=== PATIENT | male | born 1965 | race Caucasian/White ===

== ENCOUNTER 2017-02-08 21:31 | Inpatient (IN) | payer BC, OTHER ==
[~2017-02-08] VITALS: Ht 177.8 cm; Wt 81.0 kg
[~2017-02-08 21:31] MED LIST: NAPR1TAB9 PO
[2017-02-08] MEDS ORDERED: ASPIRIN 324 MG CHEW ONE (21:35)
[2017-02-08] MEDS ORDERED: HEPARIN SOD (PORCINE) 1000 UNIT/ML 10 ML VIAL ONE (21:40)
[2017-02-08] MEDS ORDERED: NiCARDipine HCL INJ 2.5 MG/ML 10 ML AMP ONE (21:40)
[2017-02-08] MEDS ORDERED: FENTANYL CITRATE INJ 50 MCG/1 ML 2 ML VIAL ONE ×2 (21:41→22:35)
[2017-02-08] MEDS ORDERED: NITROGLYCERIN/D5W 100MCG/ML 20ML SYR ONE (21:41)
[2017-02-08] MEDS ORDERED: MIDAZOLAM HCL 1 MG/ML 2ML VIAL ONE ×2 (21:41→22:35)
[2017-02-08 21:43] LABS: BASO % 0.4 %; BASO ABS # 0.05 K/uL (0-0.2); COMPLETE YES; EOS % 0.9 %; HEMATOCRIT 44.7 % (42-52); IG% 0.2 %; LYMPH % 15.9 %; MEAN CELL VOLUME 88.2 fL (80-100); MEAN CORPUSCULAR HEMOGLOBIN 30.8 pg (25-34); MEAN CORPUSCULAR HGB CONC 34.9 g/dl (32-36); MEAN PLATELET VOLUME 10.7 fL (7.4-10.4); MONO % 7.6 %; PLATELET COUNT 198 K/uL (130-400); RED BLOOD COUNT 5.07 M/uL (4.7-6.1); WHITE BLOOD COUNT 12.55 K/uL (4.8-10.8)
--- NOTE | 2017-02-08 21:49 | Procedure Note ---
Pre-Mod Sedation Assessment General Date of Moderate Sedation: Feb 08, 2017. Vital Signs: Vital Signs Past 12 Hours Date Time Temp Pulse Resp B/P (MAP) Pulse Ox O2 Delivery O2 Flow Rate FiO2 02/08/17 21:42 51 02/08/17 21:37 37.1 52 22 132/83 96 Room Air 02/08/17 21:37 96 Room Air Review Cardiovascular: regular rate, rhythm, no edema Abdomen: normal bowel sounds, non tender Lungs: chest non-tender, lungs clear Pre-Sedation Airway Assessment Oral Cavity: WNL Able to Visualize Vocal Cords: No Short Thick Neck: No Hx of Sleep Apnea: No Smoking Status: Current Every Day Smoker Mallampati Classification: Class III ASA Classification: Class III Procedure Planning Contraindications-for Mod Sed: None Yes Notes The planned sedation has been discussed with the patient and consent obtained. I have identified the patient, determined the appropriateness of sedation and have assessed the patient immediately prior to the procedure. All medicine(s) and interventions are by my order.
[2017-02-08] MEDS ORDERED: TICAGRELOR 90 MG TAB PO ONE (21:51)
--- NOTE | 2017-02-08 21:53 | DIAGNOSTIC IMAGING REPORT ---
CHEST ONE VIEW PORTABLE CLINICAL HISTORY: Cardiogenic chest pain COMPARISON STUDY: No previous studies for comparison. FINDINGS: The heart is at the upper limits of normal in size. There is no failure. There is no focal pulmonary consolidation. There are no pleural effusions.[ IMPRESSION: No active disease in the chest. Electronically signed by: Karri Lópze M.D. 02/08/2017 9:51 PM Dictated Date/Time: 02/08/2017 9:51 PM
[2017-02-08 21:54] LABS: INR 1.1 (0.9-1.1); PARTIAL THROMBOPLASTIN RATIO 1.1; PROTHROMBIN TIME (PATIENT) 11.5 SECONDS (9.0-12.0)
[2017-02-08] MEDS ORDERED: ONDANSETRON INJ 2 MG/ML 2 ML VIAL ONE (21:59)
[2017-02-08 22:01] LABS: ALT/SGPT 24 U/L (12-78); BLOOD UREA NITROGEN 11 mg/dl (7-18); BUN/CREATININE RATIO 10.2 (10-20); CARBON DIOXIDE 20 mmol/L (21-32); CHLORIDE 106 mmol/L (98-107); GLUCOSE 129 mg/dl (70-99); MAGNESIUM 1.9 mg/dl (1.8-2.4); POTASSIUM 3.2 mmol/L (3.5-5.1); SODIUM 137 mmol/L (136-145)
[2017-02-08 22:04] LABS: ALKALINE PHOSPHATASE 62 U/L (45-117); AST/SGOT 18 U/L (15-37); CKMB/CK RATIO 1.3 (0-3.0)
[2017-02-08] MEDS ORDERED: EPTIFIBATIDE 0.75 MG/ML 75MG VIAL IV ONE (22:39)
[2017-02-08] MEDS ORDERED: EPTIFIBATIDE 2 MG/ML 10 ML VIAL IV ONE (22:39)
[2017-02-08] MEDS ORDERED: ATROPINE SULFATE 0.1 MG/ML 10 ML SYR ONE (23:00)
--- NOTE | 2017-02-08 23:29 | Procedure Note ---
Post-Mod Sedation Assessment General Date of Moderate Sedation Feb 08, 2017. Vital Signs: Vital Signs Past 12 Hours Date Time Temp Pulse Resp B/P (MAP) Pulse Ox O2 Delivery O2 Flow Rate FiO2 02/08/17 21:42 51 02/08/17 21:37 37.1 52 22 132/83 96 Room Air 02/08/17 21:37 96 Room Air Review - Discharge Criteria Vital Signs Stable: Yes Alert/Oriented/Conversant: Yes Returned to Baseline Mental St: Yes Nausea Absent/Minimal: Yes Pain/Discomfort/Absent/Minimal: Yes Normal/Baseline Respirations: Yes Active Bleeding?: No Pt Received D/C Instructions: N/A Prescriptions Given: None Specific Proced. D/C Criteria Distal Pulses Present (Cardiac: Yes Groin site assessed-Card Cath: N/A Voided Prior To Discharge: N/A Discharged Patients Adult Escort/Transportation: Yes
[2017-02-08] MEDS ORDERED: ATROPINE SULFATE 0.1 MG/ML 5ML SYR IV PRN (23:30)
[2017-02-08] MEDS ORDERED: NITROGLYCERIN 0.4 MG SL PER TAB CHARGE SL PRN (23:30)
[2017-02-08] MEDS ORDERED: EPTIFIBATIDE BOLUS / DRIP IV ONE (23:30)
[2017-02-08] MEDS ORDERED: ACETAMINOPHEN 325 MG TAB PO PRN (23:30)
[2017-02-08] MEDS ORDERED: SODIUM CHLORIDE 0.9% 1000ML 1,000 ML IV SCH (23:30)
[2017-02-08] MEDS ORDERED: ONDANSETRON INJ 2 MG/ML 2 ML VIAL IV PRN (23:30)
[2017-02-08] MEDS ORDERED: MoRPHine SULFATE 2 MG/ML CARP IV PRN (23:30)
[2017-02-08 23:40] VITALS: BP 144/83; PULSE 66; TEMP 36.6; O2SAT 96; Ht 177.8 cm; Wt 81.0 kg
[2017-02-08 23:45] VITALS: BP 102/78; PULSE 63; TEMP 36.6; O2SAT 95
--- NOTE | 2017-02-08 23:52 | Cardiac Catheterization ---
Procedure Note Procedure Date Feb 08, 2017. Pre-Procedure Diagnosis STEMI AUC Score 9 Post-Procedure Diagnosis Severe CAD, Successful PCI, Normal Intracardiac Pressures Procedure(s) Performed Coronary Angiography, Left Heart Cath, Drug Eluting Stent Gastroenterology Technician Atul Dressmaker Garment Fitter(s) Alta Estimated Blood Loss 20 Medication(s) Fentanyl, Heparin, Nitroglycerin, Versed, Lidocaine 1% Ticagrelor Summary of Findings Indication: STEMI/Heart Alert Access: 6Fr Right Radial Artery Catheters: Hampton, JL3.5, Pigtail; JR4 guide, AR1 guide Findings: LM - Angiographically normal LAD - Moderate caliber vessel, 20% proximal disease, 30-40% stenosis early-mid segment after 1st septal, mild diffuse distal disease with vessel tapering as wraps around apex. On initial images some left to right collaterals to PDA Circumflex - Moderate caliber vessel, luminal irregularities; gives off 2 moderate caliber OMs without significant disease. RCA - Dominant, large caliber vessel, occluded proximally. Post intervention 30 % distal stenosis, luminal irregularities in PDA, small distal PLBs. LVEDP - 18 -- PCI -- Antithrombotic therapy: Heparin, Ticagrelor, Integrilin Procedure: Sinus bradycardia to 30s treated with atropine. Throughout case intermittent AIVR, hemodynamically stable. RCA cannulated with JR4 with poor guide support, and switched for AR1 Elastic Attacher Overlock 50 wire passed across lesion into distal vessel Long proximal to mid RCA lesion predilated with 2.0 and 3.0 compliant balloons Dilated lesion stented with 3.5 x 38 Resolute LADI Stent post-dilated with 4.0 noncompliant balloon IC vasodilators administered for spasm Some residual thrombus noted in mid stent after ballooning. Received IV/IC integrilin and started on infusion. Post procedure CAMDEN 3 flow, stent well expanded with minimal residual stenosis and no evidence of dissection. Arterial Closure: TR Band Summary: 1. Inferior STEMI/Occluded Proximal RCA - Likely acute on chronic severe disease with left to right collaterals noted pre-intervention. 2. Normal intracardiac filling pressure 3. Successful PCI of proximal to mid RCA with 3.5 x 38 Resolute LADI (post- dilated to 4.0). Recommendations: Admit to ICU for continued monitoring Loaded with Ticagrelor 180 mg in senior cytogenetics laboratory director Started on integrilin infusion --> continue for 12 hours Continue dual-antiplatelet therapy for 1 year Trend troponins until peak, Check Echo Start MENDY in AM. In the setting of bradycardia hold on beta-andre initially. start later in hospitalization as able High-dose statin Consult cardiac Rehab Hemodynamics Rest Ao: 139/67/93 Final Ao: 134/79/104 LV: 129/18 Recommendations PCI without planned CABG Specimens None Radiation Exposure (mGy) 3158 Contrast (mls) 180 Fluids (cc crystalloids) 125 Drains None Anesthesia Moderate Procedural Complication(s) None Disposition ICU ACC Data Cardiac Status Clinical evaluation leading to the procedure CAD Presntation: STEMI STEMI or Non-STEMI: Symptom Onset Date/Time: 02/08/2017 20:00 Thrombolytics: No Anginal Classification: CCS IV Heart Failure: No, NYHA Class: CCS I Cardiogenic Shock w/in 24Hrs: No Cardiac Arrest w/in 24Hrs: No Imaging studies past 6 months: No Stress studies past 6 months: No Coronary Anatomy Dominant: Right Left Main (% Stenosis): Normal LAD (% Stenosis): Proximal (20), Mid (30-40) Circumflex (% Stenosis): Normal OM1 (% Stenosis): Normal OM2 (% Stenosis): Normal RCA (% Stenosis): Proximal (100), Distal (30) R PDA (% Stenosis): Normal R PL1 (% Stenosis): Normal Left Ventricular Angiography EF (%): 45 Wall Motion: Inferior (Hypokinetic) Mitral Regurgitation: None Diagnostic Physician's Name: Shree Pollard MD Closure Device Percutaneous Entry Location: Radial Closure Device: Radial Band Recommendations: PCI without planned CABG PCI Indication: Immediate PCI for STEMI Reason For Delay in PCI: Difficulty crossing culprit lesion (organized occlusion more consistent with acute on chronic diseasse) Lesion Segment Name: Proximal RCA Culprit Artery: Yes Stenosis Prior to Rx (%): 100 Chronic Total Occlusion: No IVUS: No FFR: No Pre-Procedure CAMDEN Flow: 0 Previously Treated Lesion: No Lesion Complexity: High/C Lesion Length (mm): 30 Thrombus Present: Yes Bifurcation Lesion: No Guidewire Across Lesion: Yes Guidewire: Stenosis Post-Procedure (%): 0 Post-Procedure CAMDEN Flow: 3 Device(s) Deployed: Yes Intraprocedure Events Significant Dissection: No Perforation: No
[2017-02-09] VITALS (20 sets, daily range): BP systolic 93–144; BP diastolic 59–83; PULSE 42–66; TEMP 36.7–37.1; O2SAT 93–97
--- NOTE | 2017-02-09 00:30 | EMERGENCY ROOM VISIT NOTE ---
History Report prepared by Larry: Mana Martinez Under the Supervision of: Dr. Seth Melendrez M.D. First contact with patient: 21:28 Chief Complaint: HEART ALERT Stated Complaint: CARDIAC SX History of Present Illness The patient is a 52 year old male who presents to the Emergency Room with complaints of constant shortness of breath beginning 2 hours ago. 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 The patient was assessed by a physician at the game who recommended treatment but the patient declined. The ambulance was called for the patient and he is now complaining of some mild chest tightness that he explains is not painful but rates as a 2/10 in severity. The patient reports that he is not feeling short of breath after receiving fentanyl in the ambulance. He notes that he smokes 2-3 cigarettes a day and has had high cholesterol in the past that is now resolved. He notes that he has no family history of heart disease. The patient denies any lightheadedness, weakness, fever, and recent illness. He notes that he has not eaten anything today. Source of History: patient Onset: 2 hours ago Position: other (global) Symptom Intensity: 2/10 Quality: other (SOB) Timing: constant Associated Symptoms: + diaphoresis, + chest pain Review of Systems See HPI for pertinent positives & negatives. A total of 10 systems reviewed and were otherwise negative. Past Medical & Surgical Medical Problems: (1) AMI (acute myocardial infarction) (2) High cholesterol Family History No pertinent family history stated. Social History Marital Status: Housing Status: lives with family Occupation Status: employed Current/Historical Medications Unable to Obtain Active Prescriptions or Reported Meds Allergies Coded Allergies: No Known Allergies (Unverified , NONE, 10/14/08) Physical Exam Vital Signs Date Time Temp Pulse Resp B/P (MAP) Pulse Ox O2 Delivery O2 Flow Rate FiO2 02/08/17 23:27 57 16 119/83 (95) 96 Room Air 02/08/17 23:22 55 16 118/83 (95) 96 Room Air 02/08/17 23:17 58 16 116/80 (92) 96 Room Air 02/08/17 23:12 56 16 118/89 (99) 96 Room Air 02/08/17 21:46 137/91 02/08/17 21:45 51 96 02/08/17 21:42 51 02/08/17 21:41 141/93 02/08/17 21:40 52 96 02/08/17 21:37 37.1 52 22 132/83 96 Room Air 02/08/17 21:37 96 Room Air 02/08/17 21:35 132/83 Physical Exam Constitutional: Vital signs reviewed. Eyes: Pupils are equal round reactive to light. Conjunctiva are noninjected. ENT: Pharynx is clear without erythema or exudate. Mucous membranes are moist. Neck supple without meningeal signs. Respiratory: Clear to auscultation bilaterally. Breath sounds are equal bilaterally. Cardiovascular: Regular rate and rhythm. No rubs or gallops. GI: Soft, nondistended and nontender. Bowel sounds are present. Musculoskeletal: No peripheral edema. No lower extremity tenderness. Integumentary: No cyanosis. Neurological: The patient is awake and alert. No focal deficits. Psychiatric: Normal affect. Medical Decision & Procedures ER Provider Diagnostic Interpretation: X-ray results as stated below per interpretation by me and the radiologist: CHEST ONE VIEW PORTABLE FINDINGS: The heart is at the upper limits of normal in size. There is no failure. There is no focal pulmonary consolidation. There are no pleural effusions. IMPRESSION: No active disease in the chest. Electronically signed by: Karri López M.D. 02/08/2017 9:51 PM Dictated Date/Time: 02/08/2017 9:51 PM Laboratory Results 02/08/17 21:29 Red Blood Count 5.07, Mean Corpuscular Volume 88.2, Mean Corpuscular Hemoglobin 30.8, Mean Corpuscular Hemoglobin Concent 34.9, Mean Platelet Volume 10.7, Neutrophils (%) (Auto) 75.0, Lymphocytes (%) (Auto) 15.9, Monocytes (%) (Auto) 7.6, Eosinophils (%) (Auto) 0.9, Basophils (%) (Auto) 0.4, Neutrophils # (Auto) 9.42, Lymphocytes # (Auto) 2.00, Monocytes # (Auto) 0.95, Eosinophils # (Auto) 0.11, Basophils # (Auto) 0.05 02/08/17 21:29 Test 02/08/17 21:29 02/08/17 21:35 7/21/17 22:31 White Blood Count 12.55 K/uL (4.8-10.8) Red Blood Count 5.07 M/uL (4.7-6.1) Hemoglobin 15.6 g/dL (14.0-18.0) Hematocrit 44.7 % (42-52) Mean Corpuscular Volume 88.2 fL (80-100) Mean Corpuscular Hemoglobin 30.8 pg (25-34) Mean Corpuscular Hemoglobin Concent 34.9 g/dl (32-36) Platelet Count 198 K/uL (130-400) Mean Platelet Volume 10.7 fL (7.4-10.4) Neutrophils (%) (Auto) 75.0 % Lymphocytes (%) (Auto) 15.9 % Monocytes (%) (Auto) 7.6 % Eosinophils (%) (Auto) 0.9 % Basophils (%) (Auto) 0.4 % Neutrophils # (Auto) 9.42 K/uL (1.4-6.5) Lymphocytes # (Auto) 2.00 K/uL (1.2-3.4) Monocytes # (Auto) 0.95 K/uL (0.11-0.59) Eosinophils # (Auto) 0.11 K/uL (0-0.5) Basophils # (Auto) 0.05 K/uL (0-0.2) RDW Standard Deviation 47.3 fL (36.4-46.3) RDW Coefficient of Variation 14.6 % (11.5-14.5) Immature Granulocyte % (Auto) 0.2 % Immature Granulocyte # (Auto) 0.02 K/uL (0.00-0.02) Prothrombin Time 11.5 SECONDS (9.0-12.0) Prothromb Time International Ratio 1.1 (0.9-1.1) Activated Partial Thromboplast Time 27.4 SECONDS (21.0-31.0) Partial Thromboplastin Ratio 1.1 Anion Gap 11.0 mmol/L (3-11) Est Creatinine Clear Calc Drug Dose 86.2 ml/min Estimated GFR () 87.7 Estimated GFR (Non- 75.7 BUN/Creatinine Ratio 10.2 (10-20) Calcium Level 9.0 mg/dl (8.5-10.1) Magnesium Level 1.9 mg/dl (1.8-2.4) Total Bilirubin 0.7 mg/dl (0.2-1) Direct Bilirubin < 0.1 mg/dl (0-0.2) Aspartate Amino Transf (AST/SGOT) 18 U/L (15-37) Alanine Aminotransferase (ALT/SGPT) 24 U/L (12-78) Alkaline Phosphatase 62 U/L (45-117) Total Creatine Kinase 194 U/L (39-308) Creatine Kinase MB 2.5 ng/ml (0.5-3.6) Creatine Kinase MB Ratio 1.3 (0-3.0) Total Protein 7.9 gm/dl (6.4-8.2) Albumin 4.4 gm/dl (3.4-5.0) Lipase 276 U/L (73-393) Kaolin Activated Coagulation Time 230 SECONDS (94-140) Laboratory results as reviewed by me. Medications Administered Medications (Trade) Dose Ordered Sig/Bruna Route Start Time Stop Time Status Last Admin Dose Admin Aspirin (Aspirin Chew) 324 mg STK-MED ONCE .ROUTE 02/08/17 21:35 02/08/17 21:36 DC 02/08/17 21:35 324 MG Heparin Sodium (Porcine) (Heparin Iv Bolus) 10,000 unit STK-MED ONCE .ROUTE 02/08/17 21:40 02/08/17 21:41 DC 02/08/17 21:40 8,000 UNIT Midazolam HCl (Versed Inj) 2 mg STK-MED ONCE .ROUTE 02/08/17 21:41 02/08/17 21:42 DC 02/08/17 21:41 2 MG Fentanyl Citrate (Fentanyl Inj) 100 mcg STK-MED ONCE .ROUTE 02/08/17 21:41 02/08/17 21:42 DC 02/08/17 21:41 100 MCG Ticagrelor (Brilinta Cap) 180 mg STK-MED ONCE PO 02/08/17 21:51 02/08/17 21:52 DC 02/08/17 21:51 180 MG Midazolam HCl (Versed Inj) 2 mg STK-MED ONCE .ROUTE 02/08/17 22:35 02/08/17 22:36 DC 02/08/17 22:35 1 MG Fentanyl Citrate (Fentanyl Inj) 100 mcg STK-MED ONCE .ROUTE 02/08/17 22:35 02/08/17 22:36 DC 02/08/17 22:35 25 MCG Eptifibatide (Integrilin Inj) 40 mg STK-MED ONCE IV 02/08/17 22:39 02/08/17 22:40 DC 02/08/17 22:39 40 MG Eptifibatide (Integrilin Inj) 75 mg STK-MED ONCE IV 02/08/17 22:39 02/08/17 22:40 DC 02/08/17 22:39 75 MG Atropine Sulfate (Atropine Sulfate) 1 mg STK-MED ONCE .ROUTE 02/08/17 23:00 02/08/17 23:01 DC 02/08/17 23:00 0.4 MG ECG Indication: SOB/dyspnea Rate (beats per minute): 49 Rhythm: sinus bradycardia Findings: ST depression (AVL and V1-V2), ST elevation (Inferior) Change: Pre-Hospital EKG: Sinus Bradycardia, 41, ST elevation in the inferior leads, ST depressions in V2 and AVL. ED Course 2127: The patient was evaluated in room A1. A complete history and physical exam was performed. 2134: Aspirin Chew 324mg PO. 2142: I spoke with Dr. Pollard of Cardiology. We discussed the patient and his results. The patient will be further evaluated by Dr. Pollard. 2153: The patient states that his breathing is improved. He has no significant complaints at this time and we are waiting for the catheterization lab. Medical Decision This is a 52-year-old male who presents with chest pain and shortness of breath. Differential diagnosis includes STEMI, heart failure, RCA occlusion, bradycardia, aortic dissection. I did perform a limited focused review of portions of the patient's old chart on the electronic medical record. The patient has had no recent pertinent visits to this hospital. I did provide prehospital medical command from patient. I did review the patient's prehospital EKG as described above. He does have evidence of a STEMI and a hard alert was called. I did advise that the ambulance crew give the patient IV fentanyl and Zofran for his discomfort. I did evaluate the patient as noted above. The patient was placed on a continuous cardiac rehabilitation program director. He states he is feeling much better after the IV fentanyl. He is no longer diaphoretic and short of breath. He rates his pain a 2 out of 10 in severity. He was given aspirin here. I did order and personally review the patient's 12- lead EKG and chest x-ray as described above. I did order and review the patient 's blood work as noted in the electronic medical record. I did discuss the case with the chief of staff who assessed the patient in the ED and took the patient to the Chemical Process Operator. Medication Reconcilliation Current Medication List: was personally reviewed by me Blood Pressure Screening Patient's blood pressure: Elevated blood pressure Blood pressure disposition: Referred to PCP Consults Time Called: 2139 Consulting Physician: Dr. Pollard - Cardiology Returned Call: [address] Pollard of Cardiology. We discussed the patient and his results. The patient will be further evaluated by Dr. Pollard. Impression Primary Impression: STEMI (ST elevation myocardial infarction) Additional Impression: Bradycardia Critical Care I have personally spent 35 minutes of critical care time in the direct management of this patient. This includes bedside care, interpretation of diagnostic studies, and testing, discussion with consultants, patient, and family members, and other required patient management activities. This 35 minutes is in excess of all separately billable procedures. Scribe Attestation The scribe's documentation has been prepared under my direct and personally reviewed by me in its entirety. I confirm that the note above accurately reflects all work, treatment, procedures, and medical decision making performed by me. Departure Information Dispostion Being Evaluated By Hospitalist Prescriptions Unable to Obtain Active Prescriptions or Reported Meds Referrals No Doctor, Assigned (PCP) Patient Instructions My [facility] Problem Qualifiers Primary Impression: STEMI (ST elevation myocardial infarction) Involved coronary artery: right coronary artery Qualified Codes: I21.11 - ST elevation (STEMI) myocardial infarction involving right coronary artery
[2017-02-09 00:44] LABS: URINE APPEARANCE CLEAR (CLEAR); URINE BILIRUBIN NEG (NEG); URINE COLOR YELLOW; URINE NITRITE NEG (NEG); URINE SPECIFIC GRAVITY 1.041 (1.000-1.030); UROBILINOGEN NEG (NEG)
[2017-02-09 00:49] LABS: MANUAL MICROSCOPIC REQUIRED? NO; REVIEW REQ? NO
[2017-02-09] MEDS: POTASSIUM CHLORIDE 20 MEQ TABCR PO SCH ×3 (02:10→09:20)
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
[2017-02-09] MEDS ORDERED: POTASSIUM CHLORIDE 10 MEQ TABCR PO STA (03:01)
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
[2017-02-09] MEDS ORDERED: POTASSIUM CHLR 10 MEQ / WTR 10 MEQ in PREMIXED WATER 100 ML IV SCH (03:15)
[2017-02-09] MEDS: MAGNESIUM SULFATE 1GM / D5W 1 GM in PREMIXED IN D5W 100 ML IV SCH ×2 (03:54→05:04)
[2017-02-09] MEDS: EPTIFIBATIDE INJ 75 MG PREMIXED IV SCH ×3 (04:01→09:18)
[2017-02-09 06:01] LABS: BASO % 0.3 %; BASO ABS # 0.03 K/uL (0-0.2); COMPLETE YES; EOS % 2.1 %; HEMATOCRIT 41.2 % (42-52); IG% 0.3 %; LYMPH % 18.4 %; LYMPH ABS # 2.12 K/uL (1.2-3.4); MEAN CELL VOLUME 89.8 fL (80-100); MEAN CORPUSCULAR HEMOGLOBIN 29.8 pg (25-34); MEAN CORPUSCULAR HGB CONC 33.3 g/dl (32-36); MEAN PLATELET VOLUME 10.4 fL (7.4-10.4); MONO % 8.7 %; NEUT % 70.2 %; PLATELET COUNT 170 K/uL (130-400); RED BLOOD COUNT 4.59 M/uL (4.7-6.1); WHITE BLOOD COUNT 11.55 K/uL (4.8-10.8)
[2017-02-09 06:56] LABS: BUN/CREATININE RATIO 18.9 (10-20); CALCIUM 8.3 mg/dl (8.5-10.1); CHOLESTEROL/HDL RATIO 5.5; CREATININE 0.88 mg/dl (0.60-1.40); MAGNESIUM 2.9 mg/dl (1.8-2.4); PHOSPHORUS 2.9 mg/dl (2.5-4.9); POTASSIUM 4.4 mmol/L (3.5-5.1)
--- NOTE | 2017-02-09 07:14 | Progress Note ---
Subjective Date of Service: Feb 09, 2017. Subjective pt is feeling well and wants to go back to work on sunday 02/11. 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 When speaking of tobacco cessation he stated I know I know and waved his hands, no chest pain and no pain at [facility] site Problem List Medical Problems: (1) Bradycardia Status: Acute (2) STEMI (ST elevation myocardial infarction) Status: Acute Review of Systems Constitutional: No fever, No chills, No weakness, No fatigue Respiratory: No cough, No sputum Cardiac: No chest pain, No orthopnea Abdomen: No pain, No nausea, No vomiting, No diarrhea Neurologic: No memory loss, No paralysis, No weakness, No numbness/tingling Psychiatric: No depression symptoms, No anhedonism Objective Vital Signs Date Time Temp Pulse Resp B/P (MAP) Pulse Ox O2 Delivery O2 Flow Rate FiO2 02/09/17 06:00 36.8 48 16 99/61 (74) 94 Room Air 02/09/17 04:00 94 Room Air 02/09/17 04:00 36.7 47 16 93/61 (72) 94 Room Air 02/09/17 03:00 47 14 96/62 (73) 95 Room Air 02/09/17 02:30 47 12 104/68 (80) 94 Room Air 02/09/17 02:00 52 14 105/66 (79) 95 Room Air 02/09/17 01:45 58 16 99/66 (77) 93 Room Air 02/09/17 01:30 44 17 95/62 (73) 93 Room Air 02/09/17 01:15 43 15 101/64 (76) 94 Room Air 02/09/17 01:00 42 14 102/68 (79) 95 Room Air 02/09/17 00:45 47 20 98/64 (75) 95 Room Air 02/09/17 00:30 52 18 102/69 (80) 96 Room Air 02/09/17 00:15 66 17 144/83 (103) 96 Room Air 02/09/17 00:00 52 17 120/74 (89) 93 Room Air 02/08/17 23:45 36.6 63 18 102/78 (86) 95 Room Air 02/08/17 23:40 36.6 66 17 144/83 96 Room Air 02/08/17 23:27 57 16 119/83 (95) 96 Room Air 02/08/17 23:22 55 16 118/83 (95) 96 Room Air 02/08/17 23:17 58 16 116/80 (92) 96 Room Air 02/08/17 23:12 56 16 118/89 (99) 96 Room Air 02/08/17 21:46 137/91 02/08/17 21:45 51 96 02/08/17 21:42 51 02/08/17 21:41 141/93 02/08/17 21:40 52 96 02/08/17 21:37 37.1 52 22 132/83 96 Room Air 02/08/17 21:37 96 Room Air 02/08/17 21:35 132/83 Physical Exam General Appearance: WD/WN, no apparent distress Eyes: PERRL, EOMI Neck: supple, no JVD Respiratory/Chest: chest non-tender, lungs clear, normal breath sounds Cardiovascular: regular rate, rhythm (at times bradycardic but was around 60- 70 bpm during my exam), no murmur Abdomen: normal bowel sounds, non tender, soft Extremities: no pedal edema, no calf tenderness Neurologic/Psychiatric: alert, oriented x 3 Laboratory Results Last 24 Hours Test 02/08/17 21:29 02/08/17 22:31 02/09/17 00:09 02/09/17 00:15 White Blood Count 12.55 K/uL Red Blood Count 5.07 M/uL Hemoglobin 15.6 g/dL Hematocrit 44.7 % Mean Corpuscular Volume 88.2 fL Mean Corpuscular Hemoglobin 30.8 pg Mean Corpuscular Hemoglobin Concent 34.9 g/dl Platelet Count 198 K/uL Mean Platelet Volume 10.7 fL Neutrophils (%) (Auto) 75.0 % Lymphocytes (%) (Auto) 15.9 % Monocytes (%) (Auto) 7.6 % Eosinophils (%) (Auto) 0.9 % Basophils (%) (Auto) 0.4 % Neutrophils # (Auto) 9.42 K/uL Lymphocytes # (Auto) 2.00 K/uL Monocytes # (Auto) 0.95 K/uL Eosinophils # (Auto) 0.11 K/uL Basophils # (Auto) 0.05 K/uL RDW Standard Deviation 47.3 fL RDW Coefficient of Variation 14.6 % Immature Granulocyte % (Auto) 0.2 % Immature Granulocyte # (Auto) 0.02 K/uL Prothrombin Time 11.5 SECONDS Prothromb Time International Ratio 1.1 Activated Partial Thromboplast Time 27.4 SECONDS Partial Thromboplastin Ratio 1.1 Sodium Level 137 mmol/L Potassium Level 3.2 mmol/L Chloride Level 106 mmol/L Carbon Dioxide Level 20 mmol/L Anion Gap 11.0 mmol/L Blood Urea Nitrogen 11 mg/dl Creatinine 1.10 mg/dl Est Creatinine Clear Calc Drug Dose 86.2 ml/min Estimated GFR () 87.7 Estimated GFR (Non- 75.7 BUN/Creatinine Ratio 10.2 Random Glucose 129 mg/dl Calcium Level 9.0 mg/dl Magnesium Level 1.9 mg/dl Total Bilirubin 0.7 mg/dl Direct Bilirubin < 0.1 mg/dl Aspartate Amino Transf (AST/SGOT) 18 U/L Alanine Aminotransferase (ALT/SGPT) 24 U/L Alkaline Phosphatase 62 U/L Total Creatine Kinase 194 U/L Creatine Kinase MB 2.5 ng/ml Creatine Kinase MB Ratio 1.3 Total Protein 7.9 gm/dl Albumin 4.4 gm/dl Lipase 276 U/L Kaolin Activated Coagulation Time 230 SECONDS Bedside Glucose 134 mg/dl Urine Color YELLOW Urine Appearance CLEAR Urine pH 6.0 Urine Specific [place] 1.041 Urine Protein NEG Urine Glucose (UA) NEG Urine Ketones NEG Urine Occult Blood NEG Urine Nitrite NEG Urine Bilirubin NEG Urine Urobilinogen NEG Urine Leukocyte Esterase NEG Test 02/09/17 05:51 White Blood Count 11.55 K/uL Red Blood Count 4.59 M/uL Hemoglobin 13.7 g/dL Hematocrit 41.2 % Mean Corpuscular Volume 89.8 fL Mean Corpuscular Hemoglobin 29.8 pg Mean Corpuscular Hemoglobin Concent 33.3 g/dl Platelet Count 170 K/uL Mean Platelet Volume 10.4 fL Neutrophils (%) (Auto) 70.2 % Lymphocytes (%) (Auto) 18.4 % Monocytes (%) (Auto) 8.7 % Eosinophils (%) (Auto) 2.1 % Basophils (%) (Auto) 0.3 % Neutrophils # (Auto) 8.11 K/uL Lymphocytes # (Auto) 2.12 K/uL Monocytes # (Auto) 1.01 K/uL Eosinophils # (Auto) 0.24 K/uL Basophils # (Auto) 0.03 K/uL RDW Standard Deviation 48.6 fL RDW Coefficient of Variation 14.8 % Immature Granulocyte % (Auto) 0.3 % Immature Granulocyte # (Auto) 0.04 K/uL Sodium Level 138 mmol/L Potassium Level 4.4 mmol/L Chloride Level 109 mmol/L Carbon Dioxide Level 25 mmol/L Anion Gap 4.0 mmol/L Creatinine 0.88 mg/dl Est Creatinine Clear Calc Drug Dose 99.1 ml/min Estimated GFR () 112.9 Estimated GFR (Non- 97.4 BUN/Creatinine Ratio 18.9 Random Glucose 107 mg/dl Calcium Level 8.3 mg/dl Phosphorus Level 2.9 mg/dl Magnesium Level 2.9 mg/dl Troponin I 30.000 ng/ml Triglycerides Level 150 mg/dl Cholesterol Level 170 mg/dl HDL Cholesterol 31 mg/dl LDL Cholesterol, Calculated 109 mg/dl VLDL Cholesterol, Calculated 30 mg/dl Cholesterol/HDL Ratio 5.5 Assessment and Plan 52 Male with smoking history presents with acute ST elevation inferior wall [place] s/p intervention with Drug eluting stent Pt has some tachycardia, now has developed bradycardia and prohibits B Jake use post [place], is on aspirin, Brilinta and Atorvastatin plus low dose lisinopril, will introduce b jake when heart rate and bp allow tobacco abuse-counselled on cessation, believes will stop hypokalemia is replete DVT proph, heparin started sc
[2017-02-09 08:12] LABS: ESTIMATED AVERAGE GLUCOSE 114 mg/dl; HA1C FLAG Normal (Normal)
[2017-02-09] MEDS: TICAGRELOR 90 MG TAB PO SCH ×2 (09:19→20:38)
[2017-02-09] MEDS: ATORVASTATIN 40 MG TAB PO SCH (09:20)
[2017-02-09] MEDS: ASPIRIN 81 MG ECTAB PO SCH (09:20)
[2017-02-09] MEDS: LISINOPRIL 5 MG TAB PO SCH (09:20)
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
--- NOTE | 2017-02-09 10:15 | ECHOCARDIOGRAM REPORT ---
*NOTICE TO RECEIVING LIBERTARIAN AGENCY This information is strictly Confidential and protected under [place] law. [place] law prohibits you from making any further disclosure of this information unless further disclosure is expressly permitted by the written consent of the person to whom it pertains or is authorized by law. A general authorization for the release of medical or other information is not sufficient for this purpose. Hospital accepts no responsibility if the information is made available to any other person, INCLUDING THE PATIENT. Interpretation Summary * Name: MIKEY LAST Study Date: 02/09/2017 06:36 AM BP: 93/61 mmHg * Patient Location: [facility] HR: 47 * : 1965 (M/d/yyyy) Gender: Male Height: 70 in * Age: 52 yrs Ethnicity: CA Weight: 195 lb * Ordering Physician: MD Shree Pollard MD * Performed By: Yaneth Hansen * * Reason For Study: AMI * BSA: 2.1 m2 * -- Conclusions -- * 1. Normal LV size and wall thickness. * 2. Normal overall LV systolic function. LVEF 55-60%. Moderate inferior and inferolateral hypokineis from base to mid wall. * 3. Mildly dilated RV, normal RV function. * 4. No significant valvular pathology. * 5. Dilated IVC. Est RA 15 mmHg. * 6. No prior studies for comparison. Procedure Details * A complete two-dimensional transthoracic echocardiogram was performed (2D, M-mode, Doppler and color flow Doppler). * A contrast injection of Definity was performed to improve assessment of LV function. * Contrast was injected into an intravenous site in the right arm. * One vial of Definity ultrasound contrast was diluted in normal saline to a total volume of 10 ml. A total of '3' ml of solution was administered during imaging. * Lot # [id number] of Definity utilized for procedure. * Expiration date 03/08. Left Ventricle * The left ventricle is grossly normal size. * There is normal left ventricular wall thickness. * Ejection Fraction = 55-60%. * Moderate inferior and inferolateral hypokineis from base to mid wall. Right Ventricle * The right ventricle is mildly dilated. * The right ventricular systolic function is normal as assessed by tricuspid annular plane systolic excursion (TAPSE) (normal >1.5 cm). Atria * The left atrial size is normal. * Right atrial size is normal. Mitral Valve * The mitral valve is grossly normal. * Mitral stenosis is absent. * There is trace mitral regurgitation. Tricuspid Valve * The tricuspid valve is not well visualized, but is grossly normal. * There is no tricuspid stenosis. * There is trace tricuspid regurgitation. Aortic Valve * The aortic valve opens well. * The aortic valve is trileaflet. * No hemodynamically significant valvular aortic stenosis. * There is no significant aortic regurgitation. Pulmonic Valve * The pulmonary valve is inadequately visualized, but the Doppler data is adequate for interpretation. * There is no pulmonic valvular stenosis. * There is no significant pulmonary regurgitation. Great Vessels * The aortic root and proximal ascending aorta are normal sized. * No Doppler or imaging evidence of an aortic coarctation. Pericardium/Pleural * There is no pericardial effusion. Great Vessels * Dilated inferior vena cava with reduced collapsability with sniff indicates an elevated right atrial pressure of 15 mmHg MMode 2D Measurements and Calculations IVSd 1.1 cm IVSs 1.6 cm LVIDd 5.2 cm LVIDs 3.8 cm LVPWd 0.75 cm LVPWs 1.7 cm IVS/LVPW 1.4 FS 28.1 % EDV(Teich) 131.6 ml ESV(Teich) 60.7 ml EF(Teich) 53.9 % EDV(cubed) 143.5 ml ESV(cubed) 53.5 ml EF(cubed) 62.8 % % IVS thick 49.3 % % LVPW thick 119.7 % LV mass(C)d 175.7 grams LV mass(C)dI 85.1 grams/m\S\2 LV mass(C)s 246.6 grams LV mass(C)sI 119.4 grams/m\S\2 CO(Teich) 4.3 l/min CI(Teich) 2.1 l/min/m\S\2 SV(Teich) 70.9 ml SI(Teich) 34.3 ml/m\S\2 CO(cubed) 5.4 l/min CI(cubed) 2.6 l/min/m\S\2 SV(cubed) 90.1 ml SI(cubed) 43.6 ml/m\S\2 ACS 1.9 cm asc Aorta Diam 3.3 cm LVOT diam 2.4 cm LVOT area 4.6 cm\S\2 LVAd ap4 37.7 cm\S\2 LVLd ap4 8.6 cm EDV(MOD-sp4) 132.0 ml LVAs ap4 20.6 cm\S\2 LVLs ap4 6.4 cm ESV(MOD-sp4) 54.1 ml EF(MOD-sp4) 59.0 % LVAd ap2 31.9 cm\S\2 LVLd ap2 8.7 cm EDV(MOD-sp2) 96.6 ml LVAs ap2 18.2 cm\S\2 LVLs ap2 7.1 cm ESV(MOD-sp2) 38.7 ml EF(MOD-sp2) 59.9 % CO(MOD-sp4) 4.7 l/min CI(MOD-sp4) 2.3 l/min/m\S\2 SV(MOD-sp4) 77.9 ml SI(MOD-sp4) 37.7 ml/m\S\2 CO(MOD-sp2) 3.5 l/min CI(MOD-sp2) 1.7 l/min/m\S\2 SV(MOD-sp2) 57.9 ml SI(MOD-sp2) 28.0 ml/m\S\2 Doppler Measurements and Calculations MV E max gadiel 51.4 cm/sec MV A max gadiel 40.7 cm/sec MV E/A 1.3 MV dec time 0.27 sec Ao V2 max 130.3 cm/sec Ao max PG 6.8 mmHg Ao max PG (full) 3.2 mmHg YASEMIN(V,A) 3.3 cm\S\2 YASEMIN(V,D) 3.3 cm\S\2 LV V1 max PG 3.6 mmHg LV V1 max 95.1 cm/sec PA V2 max 52.4 cm/sec PA max PG 1.1 mmHg
[2017-02-09] MEDS ORDERED: Integrelin infusion --> STOP ORDER ONE (11:00)
--- NOTE | 2017-02-09 11:09 | Cardiology Follow-Up ---
Subjective Subjective Date of Service: Feb 09, 2017. Pt evaluation today including: conversation w/ patient, physical exam, chart review, lab review, review of studies, conversation w/ health consultant, review of inpatient medication list Additional Details: Feeling well. No chest pain. No significant pain at access site. Tele reviewed -- sinus bradycardia, resolved AIVR Problem List Medical Problems: (1) Bradycardia Status: Acute (2) STEMI (ST elevation myocardial infarction) Status: Acute Review of Systems Constitutional: No fever, No chills Respiratory: No cough, No sputum Cardiac: No chest pain Abdomen: No pain, No nausea Male : No dysuria Neurologic: No memory loss Heme: No abnormal bleeding/bruising Endo: No fatigue Skin: No rash Objective Vital Signs Last Vital Signs Documentation Date Time Temp Pulse Resp B/P (MAP) Pulse Ox O2 Delivery O2 Flow Rate FiO2 02/09/17 10:00 51 17 106/65 (79) 96 Room Air 02/09/17 08:00 36.7 Physical Exam: General Appearance: no apparent distress Neck: no JVD Respiratory/Chest: lungs clear, normal breath sounds Cardiovascular: regular rate, rhythm Abdomen: normal bowel sounds, soft Extremities: no pedal edema, no calf tenderness, + pertinent finding (No ecchymosis/hematoma. Intact distal pulse.) Neurologic/Psychiatric: no motor/sensory deficits, alert, normal mood/affect Skin: normal color, warm/dry, no rash Assessment and Plan 1. Inferior STEMI/Acute on chronic RCA occlusion -- s/p PPCI with 1 LADI to proximal RCA 2. Sinus bradycardia/AIVR 3. Tobacco abuse 4. GERD Patient doing well this AM. Hemodynamically stable, chest pain free. No access site complications. Stable renal function. -- Complete integrilin infusion this AM. -- Continue DAPT with ASA/Brillanta --> likely transition brillanta to clopidogrel before discharge. -- Low dose lisinopril this AM. Hold on beta-andre today in setting of bradycardia --> plan to start metoprolol 12.5 bid tomorrow. -- Hold additional IV fluids for now in setting of dilated RV/IVC on echo. Plan for transfer to telemetry today, ideally discharge on saturday. Medications: Current Inpatient Medications Medications (Trade) Dose Ordered Sig/Bruna Route Start Time Stop Time Status Last Admin Dose Admin Nitroglycerin (Nitrostat Tab) 0.4 mg UD PRN SL 02/08/17 23:30 03/10/17 23:29 Atropine Sulfate (Atropine Sulfate 0.1MG/Ml Inj) 0.5 mg ONE PRN IV 02/08/17 23:30 03/10/17 23:29 Ondansetron HCl (Zofran Inj) 4 mg Q6H PRN IV 02/08/17 23:30 03/10/17 23:29 Aspirin (Ecotrin Tab) 81 mg QAM PO 02/09/17 09:00 03/11/17 08:59 02/09/17 09:20 81 MG Atorvastatin Calcium (Lipitor Tab) 80 mg QAM PO 02/09/17 09:00 03/11/17 08:59 02/09/17 09:20 80 MG Lisinopril (Zestril Tab) 5 mg QAM PO 02/09/17 09:00 03/11/17 08:59 02/09/17 09:20 5 MG Acetaminophen (Tylenol Tab) 650 mg Q4H PRN PO 02/08/17 23:30 03/10/17 23:29 Morphine Sulfate (MoRPHine SULFATE INJ) 2 mg Q4 PRN IV 02/08/17 23:30 02/22/17 23:29 Ticagrelor (Brilinta Cap) 90 mg BID PO 02/09/17 09:00 03/11/17 08:59 02/09/17 09:19 90 MG Eptifibatide 100 ml @ 14.2 mls/hr Q7H3M IV 02/09/17 00:15 02/09/17 11:00 02/09/17 04:01 14.2 MLS/HR Miscellaneous (Stop Order) 1 ea ONE ONCE N/A 02/09/17 11:00 02/09/17 11:01 Heparin Sodium (Porcine) (Heparin Sq 5000 Unit/0.5ml) 5,000 unit Q8 SQ 02/09/17 14:00 03/11/17 13:59 Lab Results: 02/09/17 05:51 Red Blood Count 4.59, Mean Corpuscular Volume 89.8, Mean Corpuscular Hemoglobin 29.8, Mean Corpuscular Hemoglobin Concent 33.3, Mean Platelet Volume 10.4, Neutrophils (%) (Auto) 70.2, Lymphocytes (%) (Auto) 18.4, Monocytes (%) (Auto) 8.7, Eosinophils (%) (Auto) 2.1, Basophils (%) (Auto) 0.3, Neutrophils # (Auto) 8.11, Lymphocytes # (Auto) 2.12, Monocytes # (Auto) 1.01, Eosinophils # (Auto) 0.24, Basophils # (Auto) 0.03 02/09/17 05:51 Test 02/08/17 21:29 02/08/17 22:31 02/09/17 00:09 02/09/17 00:15 Prothrombin Time 11.5 SECONDS (9.0-12.0) Prothromb Time International Ratio 1.1 (0.9-1.1) Activated Partial Thromboplast Time 27.4 SECONDS (21.0-31.0) Partial Thromboplastin Ratio 1.1 Total Bilirubin 0.7 mg/dl (0.2-1) Direct Bilirubin < 0.1 mg/dl (0-0.2) Aspartate Amino Transf (AST/SGOT) 18 U/L (15-37) Alanine Aminotransferase (ALT/SGPT) 24 U/L (12-78) Alkaline Phosphatase 62 U/L (45-117) Total Creatine Kinase 194 U/L (39-308) Creatine Kinase MB 2.5 ng/ml (0.5-3.6) Creatine Kinase MB Ratio 1.3 (0-3.0) Total Protein 7.9 gm/dl (6.4-8.2) Albumin 4.4 gm/dl (3.4-5.0) Lipase 276 U/L (73-393) Kaolin Activated Coagulation Time 230 SECONDS (94-140) Bedside Glucose 134 mg/dl (70-99) Urine Color YELLOW Urine Appearance CLEAR (CLEAR) Urine pH 6.0 (4.5-7.5) Urine Specific [place] 1.041 (1.000-1.030) Urine Protein NEG (NEG) Urine Glucose (UA) NEG (NEG) Urine Ketones NEG (NEG) Urine Occult Blood NEG (NEG) Urine Nitrite NEG (NEG) Urine Bilirubin NEG (NEG) Urine Urobilinogen NEG (NEG) Urine Leukocyte Esterase NEG (NEG) Test 02/09/17 05:51 White Blood Count 11.55 K/uL (4.8-10.8) Red Blood Count 4.59 M/uL (4.7-6.1) Hemoglobin 13.7 g/dL (14.0-18.0) Hematocrit 41.2 % (42-52) Mean Corpuscular Volume 89.8 fL (80-100) Mean Corpuscular Hemoglobin 29.8 pg (25-34) Mean Corpuscular Hemoglobin Concent 33.3 g/dl (32-36) Platelet Count 170 K/uL (130-400) Mean Platelet Volume 10.4 fL (7.4-10.4) Neutrophils (%) (Auto) 70.2 % Lymphocytes (%) (Auto) 18.4 % Monocytes (%) (Auto) 8.7 % Eosinophils (%) (Auto) 2.1 % Basophils (%) (Auto) 0.3 % Neutrophils # (Auto) 8.11 K/uL (1.4-6.5) Lymphocytes # (Auto) 2.12 K/uL (1.2-3.4) Monocytes # (Auto) 1.01 K/uL (0.11-0.59) Eosinophils # (Auto) 0.24 K/uL (0-0.5) Basophils # (Auto) 0.03 K/uL (0-0.2) RDW Standard Deviation 48.6 fL (36.4-46.3) RDW Coefficient of Variation 14.8 % (11.5-14.5) Immature Granulocyte % (Auto) 0.3 % Immature Granulocyte # (Auto) 0.04 K/uL (0.00-0.02) Anion Gap 4.0 mmol/L (3-11) Est Creatinine Clear Calc Drug Dose 99.1 ml/min Estimated GFR () 112.9 Estimated GFR (Non- 97.4 BUN/Creatinine Ratio 18.9 (10-20) Estimated Average Glucose 114 mg/dl Hemoglobin A1c 5.6 % (4.5-5.6) Calcium Level 8.3 mg/dl (8.5-10.1) Phosphorus Level 2.9 mg/dl (2.5-4.9) Magnesium Level 2.9 mg/dl (1.8-2.4) Troponin I 30.000 ng/ml (0-0.045) Triglycerides Level 150 mg/dl (0-150) Cholesterol Level 170 mg/dl (0-200) HDL Cholesterol 31 mg/dl LDL Cholesterol, Calculated 109 mg/dl VLDL Cholesterol, Calculated 30 mg/dl Cholesterol/HDL Ratio 5.5 Hepatitis C Antibody Screen NEG (NEG) Date/Time Source Procedure Growth Status 02/08/17 23:45 Nasal MRSA DNA Surveillance Screen - Final Specimen Negative for MRSA by DNA Probe Complete
[2017-02-09] MEDS: HEPARIN SOD 5000 UNIT/0.5 ML CARP SQ SCH ×2 (14:39→20:39)
[2017-02-10 04:00] VITALS: BP 102/65; PULSE 57; TEMP 36.6; O2SAT 96
[2017-02-10] MEDS: HEPARIN SOD 5000 UNIT/0.5 ML CARP SQ SCH (05:20)
[2017-02-10] MEDS ORDERED: NTRSLP4 SL (06:43)
[2017-02-10] MEDS ORDERED: ASPEC81 PO (06:43)
[2017-02-10] MEDS ORDERED: LSN5 PO (06:43)
[2017-02-10] MEDS ORDERED: LPT40 PO (06:43)
[2017-02-10] MEDS ORDERED: BRL90 PO (06:43)
[2017-02-10 06:46] LABS: BASO % 0.4 %; BASO ABS # 0.05 K/uL (0-0.2); COMPLETE YES; EOS % 2.4 %; HEMATOCRIT 46.3 % (42-52); IG% 0.3 %; LYMPH % 16.4 %; LYMPH ABS # 1.96 K/uL (1.2-3.4); MEAN CELL VOLUME 90.4 fL (80-100); MEAN CORPUSCULAR HEMOGLOBIN 30.9 pg (25-34); MEAN CORPUSCULAR HGB CONC 34.1 g/dl (32-36); MEAN PLATELET VOLUME 11.8 fL (7.4-10.4); MONO % 9.6 %; NEUT % 70.9 %; PLATELET COUNT 174 K/uL (130-400); RED BLOOD COUNT 5.12 M/uL (4.7-6.1); WHITE BLOOD COUNT 11.93 K/uL (4.8-10.8)
--- NOTE | 2017-02-10 06:46 | Discharge Instructions ---
Discharge Instructions Date of Service Feb 10, 2017. Admission Reason for Admission: AMI Discharge Discharge Diagnosis / Problem: acute MS, stent Right coronary artery Discharge Goals Goal(s): Diagnostic testing, Therapeutic intervention Activity Recommendations Activity Limitations: as noted below Lifting Limitations: until after follow-up appointment (no strenuous activity ) Exercise/Sports Limitations: until after follow-up appointment May Resume Sexual Activity: after follow-up appointment . Instructions / Follow-Up Instructions / Follow-Up Home Care: * Take your medications exactly as directed. Don't skip doses. * Remember that recovery after a heart attack takes time. Plan to rest for at lease 4-8 weeks while you recover. Then return to normal activity when your doctor says it's okay. * Ask your doctor about joining a heart rehabilitation program. * Tell your doctor if you are feeling depressed. Feelings of sadness are common after a heart attack, but it is important that you speak to someone if you are feeling overwhelmed by these feelings. * If you are having chest pain, call 911 for an ambulance. Do NOT drive yourself to the hospital. * Ask your family members to learn CPR. * Learn to take your own blood pressure and pulse. Keep a record of your results. Ask your doctor when you should seek emergency medical attention. He or she will tell you which blood pressure reading is dangerous. Lifestyle Changes: * Maintain a healthy weight. Get help to lose any extra pounds. * Cut back on salt. * Limit canned, dried, packaged, and fast foods. * Don't add salt to your food. * Season foods with herbs instead of salt when you cook. * Break the smoking habit. Enroll in a stop-smoking program to improve your chances of success. * Limit fatty foods. * Ask your doctor about having your lipid levels checked regularly. * Build up your activity according to your doctor's recommendation. * Ask your doctor when it's okay to resume sexual activity. * Tell your doctor about any erectile dysfunction (ED) medication you are taking. Some ED medications are not safe if you take certain heart medications. * Try to manage stress. Follow Up: It is important for you to keep your follow up appointments with your medical provider. Current Hospital Diet Patient's current hospital diet: AHA Diet (Heart Healthy) Discharge Diet Recommended Diet: AHA Diet (Heart Healthy) Pending Studies Studies pending at discharge: no Laboratory Results Hemoglobin A1c Test 02/09/17 05:51 Range/Units Estimated Average Glucose 114 mg/dl Hemoglobin A1c 5.6 4.5-5.6 % Lipid Panel Test 02/09/17 05:51 Range/Units Triglycerides Level 150 0-150 mg/dl Cholesterol Level 170 0-200 mg/dl HDL Cholesterol 31 mg/dl Cholesterol/HDL Ratio 5.5 LDL Cholesterol, Calculated 109 mg/dl Medical Emergencies . Who to Call and When: Medical Emergencies: If at any time you feel your situation is an emergency, please call 911 immediately. Call 911 immediately or go to your nearest Emergency Room if you experience any of the following: Warning Signs and Symptoms of a Heart Attack * Chest pain that is not relieved by medication * Shortness of breath . Non-Emergent Contact Non-Emergency issues call your: Primary Care Provider, Filter Press Tender Head Call Non-Emergent contact if: temperature is above 101, your pain is unusual for you . . "Provider Documentation" section prepared by Seth Rodriguez. . AMI Core Measures Reason no ASA as I/P: Treatment provided - N/A Reason no ASA at D/C: Treatment provided - N/A Reason no statin as I/P: Treatment provided - N/A Reason no statin at D/C: Treatment provided - N/A VTE Core Measure Inpt VTE Proph given/why not?: Unfractionated heparin SQ
[2017-02-10 07:19] LABS: BUN/CREATININE RATIO 13.3 (10-20); POTASSIUM 4.3 mmol/L (3.5-5.1)
[2017-02-10 07:38] VITALS: BP 99/66; PULSE 93; TEMP 36.7; O2SAT 96
[2017-02-10] MEDS: ATORVASTATIN 40 MG TAB PO SCH (08:30)
[2017-02-10] MEDS: LISINOPRIL 5 MG TAB PO SCH (08:30)
[2017-02-10] MEDS: ASPIRIN 81 MG ECTAB PO SCH (08:30)
[2017-02-10] MEDS: TICAGRELOR 90 MG TAB PO SCH (08:30)
[2017-02-10 09:43] VITALS: BP 99/66; PULSE 93; TEMP 36.7; O2SAT 96
[2017-02-10] MEDS ORDERED: CLOPIDOGREL BISULFATE 300 MG TAB PO STA (10:56)
--- NOTE | 2017-02-10 11:08 | Cardiology Follow-Up ---
Subjective Subjective Date of Service: Feb 10, 2017. Pt evaluation today including: conversation w/ patient, conversation w/ family , physical exam, chart review, lab review, review of studies, conversation w/ aerodynamic consultant, review of inpatient medication list Additional Details: Patient feeling well. No recurrent chest pain. No other new complaints. Tele reviewed -- brief NSVT 3 beats, otherwise sinus amira primarily in 50s. Problem List Medical Problems: (1) Bradycardia Status: Acute (2) STEMI (ST elevation myocardial infarction) Status: Acute Review of Systems Constitutional: No fever, No chills, No weakness, No fatigue Respiratory: No cough, No sputum Cardiac: No chest pain, No orthopnea Abdomen: No pain, No nausea, No vomiting, No diarrhea Male : No dysuria Neurologic: No memory loss, No paralysis, No weakness, No numbness/tingling Psychiatric: No depression symptoms, No anhedonism Heme: No abnormal bleeding/bruising Endo: No fatigue Skin: No rash Objective Vital Signs Last Vital Signs Documentation Date Time Temp Pulse Resp B/P (MAP) Pulse Ox O2 Delivery O2 Flow Rate FiO2 02/10/17 09:43 36.7 93 18 96 Room Air 02/10/17 07:38 99/66 (77) Physical Exam: General Appearance: no apparent distress Neck: supple, no JVD Respiratory/Chest: chest non-tender, lungs clear, normal breath sounds Cardiovascular: regular rate, rhythm, no murmur Abdomen: normal bowel sounds, non tender, soft Extremities: no pedal edema, no calf tenderness, + pertinent finding (intact right radial pulse, no ecchymosis/hematoma.) Neurologic/Psychiatric: alert, oriented x 3 Skin: normal color, warm/dry, no rash Assessment and Plan 1. Inferior STEMI/Acute on chronic RCA occlusion -- s/p PPCI with 1 LADI to proximal RCA 2. Sinus bradycardia/AIVR 3. Tobacco abuse 4. GERD Patient continues to do well this AM. No new complaints or events overnight. Recommended to patient observation for 1 additional night but he is adamant that he needs to go home today. -- Would switch to plavix prior to discharge --> give 300 mg now --> start 75 mg in AM. Discontinue brillanta. Continue ASA 81 mg daily. -- continue current statin -- continue lisinopril -- NO BETA-ANDRE PRESCRIBED ON DISCHARGE DUE TO BRADYCARDIA. -- Follow-up with me in 1-2 weeks. Will start beta-andre, discuss cardiac rehab. Medications: Current Inpatient Medications Medications (Trade) Dose Ordered Sig/Bruna Route Start Time Stop Time Status Last Admin Dose Admin Nitroglycerin (Nitrostat Tab) 0.4 mg UD PRN SL 02/08/17 23:30 03/10/17 23:29 Atropine Sulfate (Atropine Sulfate 0.1MG/Ml Inj) 0.5 mg ONE PRN IV 02/08/17 23:30 03/10/17 23:29 Ondansetron HCl (Zofran Inj) 4 mg Q6H PRN IV 02/08/17 23:30 03/10/17 23:29 Aspirin (Ecotrin Tab) 81 mg QAM PO 02/09/17 09:00 03/11/17 08:59 02/10/17 08:30 81 MG Atorvastatin Calcium (Lipitor Tab) 80 mg QAM PO 02/09/17 09:00 03/11/17 08:59 02/10/17 08:30 80 MG Lisinopril (Zestril Tab) 5 mg QAM PO 02/09/17 09:00 03/11/17 08:59 02/10/17 08:30 5 MG Acetaminophen (Tylenol Tab) 650 mg Q4H PRN PO 02/08/17 23:30 03/10/17 23:29 Morphine Sulfate (MoRPHine SULFATE INJ) 2 mg Q4 PRN IV 02/08/17 23:30 02/22/17 23:29 Ticagrelor (Brilinta Cap) 90 mg BID PO 02/09/17 09:00 03/11/17 08:59 02/10/17 08:30 90 MG Heparin Sodium (Porcine) (Heparin Sq 5000 Unit/0.5ml) 5,000 unit Q8 SQ 02/09/17 14:00 03/11/17 13:59 02/10/17 05:20 5,000 UNIT Lab Results: Reported Home Medications Medications Dose Route/Sig Max Daily Dose Days Date Category Aspirin EC Low Dose (Aspirin) 81 Mg Ectab 81 Mg PO QAM 02/10/17 Rx Nitrostat (Nitroglycerin) 0.4 Mg/1 Tab Subl 0.4 Mg SL UD PRN 02/10/17 Rx Lisinopril 5 Mg Tab 5 Mg PO QAM 02/10/17 Rx Atorvastatin Calcium (Atorvastatin) 40 Mg Tab 80 Mg PO QAM 02/10/17 Rx Brilinta (Ticagrelor) 90 Mg Tab 90 Mg PO BID 02/10/17 Rx
[2017-02-10] MEDS ORDERED: CLOP1TAB5 PO (11:24)
[2017-02-10 11:55] VITALS: BP 110/73; PULSE 68; TEMP 36.6; O2SAT 93
--- NOTE | 2017-02-10 12:24 | Discharge Summary ---
Discharge Summary Date of Service Feb 10, 2017. 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 Medication Reconciliation New Medications: Clopidogrel Bisulfate (Plavix) 75 Mg Tab 1 TAB PO DAILY for 90 Days, #90 TAB 1 Refill Aspirin (Aspirin EC Low Dose) 81 Mg Ectab 81 MG PO QAM, #365 DOSE 1 Refill Atorvastatin (Atorvastatin Calcium) 40 Mg Tab 80 MG PO QAM, #30 TAB 6 Refills Lisinopril (Lisinopril) 5 Mg Tab 5 MG PO QAM, #30 TAB 6 Refills Nitroglycerin (Nitrostat) 0.4 Mg/1 Tab Subl 0.4 MG SL UD PRN for Chest Pain, #1 BTL 3 Refills Discharge Exam Review of Systems: Constitutional: No fever, No chills, No sweats, No weakness Respiratory: No cough, No sputum, No wheezing, No shortness of breath Cardiovascular: No chest pain, No orthopnea, No edema Abdomen: No pain, No nausea, No vomiting, No diarrhea Physical Exam: General Appearance: WD/WN, no apparent distress Neck: supple, no JVD Respiratory/Chest: chest non-tender, lungs clear, normal breath sounds Cardiovascular: regular rate, rhythm, no murmur Abdomen / GI: normal bowel sounds, non tender, soft Hospital Course 52 Male with smoking history presents with acute ST elevation inferior wall MN s/p intervention with Drug eluting stent Previously had developed bradycardia and lower blood pressure which prohibits B Jake use post MN, is on aspirin, Plavix and Atorvastatin plus low dose lisinopril, will introduce b jake if heart rate and bp allow this will be determined as an outpatient by Dr. Pollard when necessary nitroglycerin also given for home use although not significant residual coronary disease counseled on heart healthy diet tobacco abuse-counselled on cessation, believes will stop hypokalemia is replete DVT proph, heparin used Total Time Spent: Greater than 30 minutes This includes examination of the patient, discharge planning, medication reconciliation, and communication with other providers. Discharge Instructions Please refer to the electronic Patient Visit Report (Discharge Instructions) for additional information. Additional Copies To Shree Pollard MD
[2017-02-11] MEDS ORDERED: CLOPIDOGREL BISULFATE 75 MG TAB PO SCH (09:00)
[2017-02-11 16:22] LABS: ISTAT CREATININE 0.9 mg/dl (0.6-1.3); ISTAT IONIZED CALCIUM 1.1 mmol/l (1.12-1.32)
== END 2017-02-10 12:28 | disposition home or self-care (01) | DRG 247 ==
LOC: C.ED 21:31 → C.MSICU 23:29 → ENRESERV 02-09 14:08 → C.2T 02-09 14:46
PROVIDERS: ADMIT Family Medicine; ATTEND Internal Medicine
PROC: B2151ZZ Fluoroscopy of Left Heart using Low Osmolar Contrast (ICD-10-PCS; principal; 2017-02-08 21:41)
PROC: 027034Z Dilation of Coronary Artery, One Artery with Drug-eluting Intraluminal Device, Percutaneous Approach (ICD-10-PCS; principal; 2017-02-08 21:41)
PROC: 4A023N7 Measurement of Cardiac Sampling and Pressure, Left Heart, Percutaneous Approach (ICD-10-PCS; principal; 2017-02-08 21:41)
PROC: B2111ZZ Fluoroscopy of Multiple Coronary Arteries using Low Osmolar Contrast (ICD-10-PCS; principal; 2017-02-08 21:41)
DX: I21.11 ST elevation (STEMI) myocardial infarction involving right coronary artery (principal); F17.210 Nicotine dependence, cigarettes, uncomplicated; E78.00 Pure hypercholesterolemia, unspecified; R00.0 Tachycardia, unspecified; R00.1 Bradycardia, unspecified; K21.9 Gastro-esophageal reflux disease without esophagitis; E78.5 Hyperlipidemia, unspecified; I25.10 Atherosclerotic heart disease of native coronary artery without angina pectoris; E87.6 Hypokalemia